=== PATIENT | female | born 1970 | race Two or more races ===

== ENCOUNTER 2018-04-15 17:01 | Emergency (ER) | payer OTHER ==
[~2018-04-15] VITALS: Ht 165.1 cm; Wt 79.4 kg
[~2018-04-15 17:01] MED LIST: UNABLE MC
[2018-04-15 19:03] VITALS: BP 142/95
[2018-04-15] MEDS ORDERED: IPRATRPIUM/ALBUTEROL 0.5/2.5MG 3 ML NEBU. NEB ONE (19:15)
[2018-04-15] MEDS ORDERED: BENZONATATE 100 MG CAPSULE. PO ONE (19:15)
[2018-04-15 19:49] LABS: INFLUENZA A PATIENT NEGATIVE (NEGATIVE); INFLUENZA B PATIENT NEGATIVE (NEGATIVE)
[2018-04-15] MEDS ORDERED: HYDR5SUS PO (21:18)
[2018-04-15] MEDS ORDERED: VENTOLIN HFA18 GM INH (21:18)
[2018-04-15] MEDS ORDERED: PRED50TA PO (21:18)
--- NOTE | 2018-04-15 21:19 | PHYS DOC ---
Past Medical History Past Medical History: No Pertinent History, Hypertension Past Surgical History: No Surgical History Alcohol Use: Occasionally Drug Use: None Adult General Chief Complaint Chief Complaint: Congestion HPI HPI Patient is a 48 year old female with a history of hypertension who presents to the ED today complaining of cough for 1 week. Patient denies any fever. Denies any chest pain or shortness of breath. Review of Systems Review of Systems Constitutional: Denies fever or chills [] Eyes: Denies change in visual acuity, redness, or eye pain [] HENT: Denies nasal congestion or sore throat [] Respiratory: Reports cough, denies shortness of breath [] Cardiovascular: No additional information not addressed in HPI [] GI: Denies abdominal pain, nausea, vomiting, bloody stools or diarrhea [] : Denies dysuria or hematuria [] Musculoskeletal: Denies back pain or joint pain [] Integument: Denies rash or skin lesions [] Neurologic: Denies headache, focal weakness or sensory changes [] All other systems were reviewed and found to be within normal limits, except as documented in this note. Current Medications Current Medications Current Medications Medications (Trade) Dose Ordered Sig/Lenny Start Time Stop Time Status Last Admin Dose Admin Albuterol/ Ipratropium (Duoneb) 3 ml 1X ONCE 04/15/18 19:15 04/15/18 19:16 DC 04/15/18 19:43 3 ML Benzonatate (Tessalon Perle) 100 mg 1X ONCE 04/15/18 19:15 04/15/18 19:16 DC 04/15/18 19:27 100 MG Allergies Allergies Allergies Coded Allergies Type Severity Reaction Last Updated Verified No Known Drug Allergies 03/04/14 No Physical Exam Physical Exam Constitutional: Well developed, well nourished, no acute distress, non-toxic appearance. [] HENT: Normocephalic, atraumatic, bilateral external ears normal, oropharynx moist, no oral exudates, nose normal. [] Eyes: PERRLA, EOMI, conjunctiva normal, no discharge. [] Neck: Normal range of motion, no tenderness, supple, no stridor. [] Cardiovascular:Heart rate regular rhythm, no murmur [] Lungs & Thorax: Bilateral breath sounds clear to auscultation [] Abdomen: Bowel sounds normal, soft, no tenderness, no masses, no pulsatile masses. [] Skin: Warm, dry, no erythema, no rash. [] Back: No tenderness, no CVA tenderness. [] Extremities: No tenderness, no cyanosis, no clubbing, ROM intact, no edema. [] Neurologic: Alert and oriented X 3, normal motor function, normal sensory function, no focal deficits noted. [] Psychologic: Affect normal, judgement normal, mood normal. [] Current Patient Data Vital Signs Vital Signs Date Time Temp Pulse Resp B/P (MAP) Pulse Ox O2 Delivery O2 Flow Rate FiO2 04/15/18 19:44 Room Air 04/15/18 19:03 98.2 95 16 142/95 (111) 97 98.2 Lab Values Laboratory Tests Test 04/15/18 19:22 Influenza Type A Antigen Negative (NEGATIVE) Influenza Type B Antigen Negative (NEGATIVE) EKG EKG [] Radiology/Procedures Radiology/Procedures [] Course & Med Decision Making Course & Med Decision Making Pertinent Labs and Imaging studies reviewed. (See chart for details) This is a 48-year-old. Patient presented to the ED today with complaints of cough for 1 week. Negative influenza A or B, chest x-ray interpreted by Dr. Hogan is negative for any acute findings. Patient likely has bronchitis. Was discharged with albuterol inhaler, prednisone, and tussionex. F/u with PCP in one week. Dragon Disclaimer Dragon Disclaimer This electronic medical record was generated, in whole or in part, using a voice recognition dictation system. Departure Departure Impression: Primary Impression: Acute bronchitis Disposition: 01 HOME, SELF-CARE Condition: STABLE Referrals: JAZIEL LOZADA MD (PCP) follow up in 1-2 weeks Patient Instructions: Acute Bronchitis Additional Instructions: You were evaluated for acute bronchitis in the emergency room. Take the prescribed medications as ordered. Follow-up with your doctor in 1-2 weeks. Scripts Albuterol Sulfate (VENTOLIN HFA INHALER) 18 Gm Hfa.aer.ad 2 PUFF INH Q4HRS for FOR ASTHMA, #1 INHALER 0 Refills Prov: MUTUNGAFLORY TOBACCO CURER 04/15/18 Prednisone (PREDNISONE) 50 Mg Tablet 1 TAB PO DAILY, #5 TAB Prov: TAISHAUNGAFLORY TOBACCO CURER 04/15/18 Hydrocodone/Chlorphen Polis (HYDROCODONE-CHLORPHENIRAM SUSP) 5 Ml Kayla.er.12h 5 ML PO PRN Q12HR PRN for COUGH, #80 ML 0 Refills Prov: FLORY CONN TOBACCO CURER 04/15/18 Problem Qualifiers Primary Impression: Acute bronchitis Bronchitis organism: unspecified organism Qualified Codes: J20.9 - Acute bronchitis, unspecified FLORY CONN TOBACCO CURER Apr 15, 2018 21:19
--- NOTE | 2018-04-15 22:29 | RAD ---
Examination: CHEST PA LATERAL History: ER PATIENT. NON PRODUCTIVE COUGH X10 DAYS. NO PRIORS. Comparison/Correlation: None Findings: PA and lateral views of chest were obtained. Heart size and pulmonary vasculature are normal. Subtle patchy infiltrate involving the left posterior basilar retrocardiac region is present. Right lung field is unremarkable. No pneumothorax. Bony structures are unremarkable. Impression: Patchy infiltrate at the posterior left basilar aspect. Follow-up to resolution recommended. Electronically signed by: Reuben Owens MD (04/15/2018 10:25 PM) [facility]
== END 2018-04-15 21:43 | disposition home or self-care (01) ==
LOC: ER 17:01
DX: J20.9 Acute bronchitis, unspecified (principal); I10 Essential (primary) hypertension
CPT/HCPCS: 71046; 87804; 94640; 99284; J7620

== ENCOUNTER 2018-08-26 15:15 | Emergency (ER) | payer OTHER ==
[~2018-08-26] VITALS: Ht 165.1 cm; Wt 79.4 kg
[~2018-08-26 15:15] MED LIST changes: +HYDR5SUS PO; +PRED50TA PO; +VENTOLIN HFA18 GM INH
[2018-08-26] MEDS ORDERED: IV NORMAL SALINE 1000ML BAG 1,000 ML IV ONE (15:30)
[2018-08-26] MEDS ORDERED: PROCHLORPERAZINE 10 MG/2 ML VIAL. IV ONE (15:30)
[2018-08-26] MEDS ORDERED: methylPREDNISolone SOD SUCC PF 125 MG/2 ML VIAL. IV ONE (15:30)
--- NOTE | 2018-08-26 15:33 | PHYS DOC ---
Past Medical History Past Medical History: No Pertinent History, Hypertension Past Surgical History: No Surgical History Alcohol Use: Occasionally Drug Use: None Adult General Chief Complaint Chief Complaint: HEADACHE HPI HPI Patient is a 48 year old female with history of hypertension who presents to the ED today complaining of 10 out of 10 throbbing headache behind the left eye that has been going on intermittently for 3 days. Patient denies any nausea or vomiting, denies any photosensitivity. Denies any exacerbating or relieving factors to this headache. She states she's also had a running nose for 3 days and has been using [id number]-[id number] nasal relief spray. Denies any fever. Denies any coughing. Denies any neck pain. She states she's had similar headaches but not as bad. Review of Systems Review of Systems Constitutional: Denies fever or chills [] Eyes: Denies change in visual acuity, redness, or eye pain [] HENT: Reports nasal congestion, denies sore throat [] Respiratory: Denies cough or shortness of breath [] Cardiovascular: No additional information not addressed in HPI [] GI: Denies abdominal pain, nausea, vomiting, bloody stools or diarrhea [] : Denies dysuria or hematuria [] Musculoskeletal: Denies back pain or joint pain [] Integument: Denies rash or skin lesions [] Neurologic: Reports left sided headache, denies focal weakness or sensory changes [] All other systems were reviewed and found to be within normal limits, except as documented in this note. Current Medications Current Medications Current Medications Medications (Trade) Dose Ordered Sig/Lenny Start Time Stop Time Status Last Admin Dose Admin Methylprednisolone Sodium Succinate (SOLU-Medrol 125MG VIAL) 125 mg 1X ONCE 08/26/18 15:30 08/26/18 15:31 DC 08/26/18 16:26 125 MG Prochlorperazine Edisylate (Compazine) 10 mg 1X ONCE 08/26/18 15:30 08/26/18 15:31 DC 08/26/18 16:26 10 MG Sodium Chloride 1,000 ml @ 1,000 mls/hr 1X ONCE 08/26/18 15:30 08/26/18 16:29 DC 08/26/18 16:26 1,000 MLS/HR Allergies Allergies Allergies Coded Allergies Type Severity Reaction Last Updated Verified No Known Drug Allergies 03/04/14 No Physical Exam Physical Exam Constitutional: Well developed, well nourished, no acute distress, non-toxic appearance. [] HENT: Normocephalic, atraumatic, bilateral external ears normal, oropharynx moist, no oral exudates, nose normal. [] Eyes: PERRLA, EOMI, conjunctiva normal, no discharge. [] Neck: Normal range of motion, no tenderness, supple, no stridor. [] Cardiovascular:Heart rate regular rhythm, no murmur [] Lungs & Thorax: Bilateral breath sounds clear to auscultation [] Abdomen: Bowel sounds normal, soft, no tenderness, no masses, no pulsatile masses. [] Skin: Warm, dry, no erythema, no rash. [] Back: No tenderness, no CVA tenderness. [] Extremities: No tenderness, no cyanosis, no clubbing, ROM intact, no edema. [] Neurologic: Alert and oriented X 3, normal motor function, normal sensory function, no focal deficits noted. Cranial nerves II through XII intact. Psychologic: Affect normal, judgement normal, mood normal. [] Current Patient Data Vital Signs Vital Signs Date Time Temp Pulse Resp B/P (MAP) Pulse Ox O2 Delivery O2 Flow Rate FiO2 08/26/18 15:42 98.2 92 16 142/85 (104) 99 Room Air 98.2 Lab Values Laboratory Tests Test 08/26/18 15:45 White Blood Count 8.1 x10^3/uL (4.0-11.0) Red Blood Count 4.34 x10^6/uL (3.50-5.40) Hemoglobin 13.2 g/dL (12.0-15.5) Hematocrit 38.4 % (36.0-47.0) Mean Corpuscular Volume 88 fL (79-100) Mean Corpuscular Hemoglobin 30 pg (25-35) Mean Corpuscular Hemoglobin Concent 34 g/dL (31-37) Red Cell Distribution Width 13.8 % (11.5-14.5) Platelet Count 248 x10^3/uL (140-400) Neutrophils (%) (Auto) 71 % (31-73) Lymphocytes (%) (Auto) 21 % (24-48) L Monocytes (%) (Auto) 6 % (0-9) Eosinophils (%) (Auto) 1 % (0-3) Basophils (%) (Auto) 1 % (0-3) Neutrophils # (Auto) 5.8 x10^3uL (1.8-7.7) Lymphocytes # (Auto) 1.7 x10^3/uL (1.0-4.8) Monocytes # (Auto) 0.5 x10^3/uL (0.0-1.1) Eosinophils # (Auto) 0.1 x10^3/uL (0.0-0.7) Basophils # (Auto) 0.0 x10^3/uL (0.0-0.2) Sodium Level 138 mmol/L (136-145) Potassium Level 3.4 mmol/L (3.5-5.1) L Chloride Level 100 mmol/L (98-107) Carbon Dioxide Level 25 mmol/L (21-32) Anion Gap 13 (6-14) Blood Urea Nitrogen 9 mg/dL (7-20) Creatinine 0.7 mg/dL (0.6-1.0) Estimated GFR (Cockcroft-Gault) 88.9 Glucose Level 122 mg/dL (70-99) H Calcium Level 9.0 mg/dL (8.5-10.1) Laboratory Tests 08/26/18 15:45 Laboratory Tests 08/26/18 15:45 EKG EKG [] Radiology/Procedures Radiology/Procedures []PROCEDURE: CT HEAD WO CONTRAST EXAM: CT HEAD WITHOUT CONTRAST. HISTORY: Headache, left eye pain. TECHNIQUE: Computed tomography of the head was performed without intravenous contrast. COMPARISON: None. FINDINGS: There is no intracranial hemorrhage. Murphy-white differentiation is preserved. The ventricles are normal in size and position. The left maxillary sinus is opacified in its visualized portions. There is a region of calcific density bridging the left maxillary sinus and nasal cavity. The left ethmoid air cells and the left aspect of the frontal sinus are also mostly opacified with fluid. The orbits are unremarkable. The temporal bones are unremarkable. The calvarium reveals no suspicious lesions. IMPRESSION: 1. No acute intracranial findings. 2. Diffuse acute left paranasal sinusitis. A region of calcification is seen within the left maxillary sinus and nasal cavity, partially visualized. An examination of the paranasal sinuses could further evaluate and exclude a mass as a cause for obstruction. *One or more of the following individualized dose reduction techniques were utilized for this examination: 1. Automated exposure control. 2. Adjustment of the mA and/or kV according to patient size. 3. Use of iterative reconstruction technique. Electronically signed by: Lisa Macedo MD (08/26/2018 4:06 PM) [facility] DICTATED and SIGNED BY: CURTIS MACEDO MD DATE: 08/26/18 1600 PROCEDURE: CT MAXILLOFACIAL WO CONTRAST CT MAXILLOFACIAL WO CONTRAST Indication: Sinus mass. Sinusitis. Exposure: One or more of the following individualized dose reduction techniques were utilized for this examination: 1. Automated exposure control 2. Adjustment of the mA and/or kV according to patient size 3. Use of iterative reconstruction technique. Technique: Standard imaging without intravenous contrast. Comparison is made with CT head of the same day. There is extensive soft tissue opacification involving most of the maxillary sinus and extending into the left nasal cavity. There is some central calcification. The medial wall of the left maxillary sinus is partially absent. There is moderate mucosal thickening extending into the left ethmoid sinuses. Near-complete opacification of left frontal sinus. Mild right frontal, right maxillary and right ethmoid mucosal thickening. Mild sphenoid sinus mucosal thickening. IMPRESSION: Diffuse mucosal thickening of paranasal sinuses, greater on the left. This is most advanced at the left maxillary sinus and left nasal cavity, which appear continuous, with absence or destruction of a portion of the medial maxillary sinus wall. Findings could be related to aggressive infectious or inflammatory sinusitis. Fungal sinusitis is possible. Neoplastic etiology is also possible and not excludable by this exam. And irregular calcifications within the nasal cavity may represent expanded turbinates versus dystrophic or neoplastic calcification/ossification. Electronically signed by: Hayden Gama MD (08/26/2018 4:55 PM) [id number] DICTATED and SIGNED BY: HAYDEN GAMA MD DATE: 08/26/18 1783 Course & Med Decision Making Course & Med Decision Making Pertinent Labs and Imaging studies reviewed. (See chart for details) This is a 48-year-old female patient presenting to the ED today with a headache with left nose drainage that began 3 days ago. CBC with normal WBC, BMP with no acute findings. CT of the head is negative, CT of the head was noted for possible muscle calcifi cation in the left nasal cavity. CT of the maxillary facial was obtained-please see extensive results noted on CT read. Consulted with Dr. Guerrero-we agreed patient should f/u with ENT. Patient was discharged with Augmentin. Dragon Disclaimer Dragon Disclaimer This electronic medical record was generated, in whole or in part, using a voice recognition dictation system. Departure Departure Impression: Primary Impression: Acute sinusitis Additional Impression: Headache Disposition: HOME, SELF-CARE Condition: STABLE Referrals: JAZIEL LOZADA MD (PCP) follow up in 2 weeks RANCHO DOOLEY MD follow up in 2 weeks Patient Instructions: Headache, FAQs, Sinusitis Additional Instructions: You were evaluated in the emergency room and noted to have infection in the left nose, your CT could not rule out mass or neoplasm to the left nose. Please follow up with the provided ENT in 2 weeks. Complete your antibiotics. Scripts Diclofenac Sodium (DICLOFENAC SODIUM) 50 Mg Tablet.dr 1 TAB PO BID, #20 TAB 0 Refills Prov: FLORY CONN APRN 08/26/18 Prednisone (PREDNISONE) 50 Mg Tablet 1 TAB PO DAILY, #5 TAB Prov: LFORY CONN APRN 08/26/18 Amoxicillin/Potassium Clav (AUGMENTIN 875-125 TABLET) 1 Each Tablet 1 TAB PO BID, #20 TAB Prov: FLORY CONN APRN 08/26/18 Problem Qualifiers Primary Impression: Acute sinusitis Sinusitis location: maxillary Recurrence: non-recurrent Qualified Codes: J01.00 - Acute maxillary sinusitis, unspecified Additional Impression: Headache Headache type: unspecified Headache chronicity pattern: acute headache Intractability: not intractable Qualified Codes: R51 - Headache FLORY CONN APRN Aug 26, 2018 15:33
[2018-08-26 15:55] LABS: BASO % 1 % (0-3); EOS # 0.1 x10^3/uL (0.0-0.7); EOS % 1 % (0-3); HEMATOCRIT 38.4 % (36.0-47.0); HEMOGLOBIN 13.2 g/dL (12.0-15.5); LYMPH # 1.7 x10^3/uL (1.0-4.8); LYMPH % 21 % (24-48); MEAN CORPUSCULAR HEMOGLOBIN 30 pg (25-35); MEAN CORPUSCULAR HGB CONC 34 g/dL (31-37); MEAN CORPUSCULAR VOLUME 88 fL (79-100); MONO # 0.5 x10^3/uL (0.0-1.1); MONO % 6 % (0-9); NEUT # 5.8 x10^3uL (1.8-7.7); NEUT % 71 % (31-73); PLATELET COUNT 248 x10^3/uL (140-400); RED BLOOD COUNT 4.34 x10^6/uL (3.50-5.40); RED CELL DISTRIBUTION WIDTH 13.8 % (11.5-14.5); WHITE BLOOD COUNT 8.1 x10^3/uL (4.0-11.0)
--- NOTE | 2018-08-26 16:09 | RAD ---
EXAM: CT HEAD WITHOUT CONTRAST. HISTORY: Headache, left eye pain. TECHNIQUE: Computed tomography of the head was performed without intravenous contrast. COMPARISON: None. FINDINGS: There is no intracranial hemorrhage. Murphy-white differentiation is preserved. The ventricles are normal in size and position. The left maxillary sinus is opacified in its visualized portions. There is a region of calcific density bridging the left maxillary sinus and nasal cavity. The left ethmoid air cells and the left aspect of the frontal sinus are also mostly opacified with fluid. The orbits are unremarkable. The temporal bones are unremarkable. The calvarium reveals no suspicious lesions. IMPRESSION: 1. No acute intracranial findings. 2. Diffuse acute left paranasal sinusitis. A region of calcification is seen within the left maxillary sinus and nasal cavity, partially visualized. An examination of the paranasal sinuses could further evaluate and exclude a mass as a cause for obstruction. *One or more of the following individualized dose reduction techniques were utilized for this examination: 1. Automated exposure control. 2. Adjustment of the mA and/or kV according to patient size. 3. Use of iterative reconstruction technique. Electronically signed by: Lisa Macedo MD (08/26/2018 4:06 PM) [facility]
[2018-08-26 16:24] LABS: CREATININE 0.7 mg/dL (0.6-1.0); GFR 88.9; POTASSIUM 3.4 mmol/L (3.5-5.1)
--- NOTE | 2018-08-26 16:58 | RAD ---
CT MAXILLOFACIAL WO CONTRAST Indication: Sinus mass. Sinusitis. Exposure: One or more of the following individualized dose reduction techniques were utilized for this examination: 1. Automated exposure control 2. Adjustment of the mA and/or kV according to patient size 3. Use of iterative reconstruction technique. Technique: Standard imaging without intravenous contrast. Comparison is made with CT head of the same day. There is extensive soft tissue opacification involving most of the maxillary sinus and extending into the left nasal cavity. There is some central calcification. The medial wall of the left maxillary sinus is partially absent. There is moderate mucosal thickening extending into the left ethmoid sinuses. Near-complete opacification of left frontal sinus. Mild right frontal, right maxillary and right ethmoid mucosal thickening. Mild sphenoid sinus mucosal thickening. IMPRESSION: Diffuse mucosal thickening of paranasal sinuses, greater on the left. This is most advanced at the left maxillary sinus and left nasal cavity, which appear continuous, with absence or destruction of a portion of the medial maxillary sinus wall. Findings could be related to aggressive infectious or inflammatory sinusitis. Fungal sinusitis is possible. Neoplastic etiology is also possible and not excludable by this exam. And irregular calcifications within the nasal cavity may represent expanded turbinates versus dystrophic or neoplastic calcification/ossification. Electronically signed by: Hayden Gama MD (08/26/2018 4:55 PM) [id number]
[2018-08-26] MEDS ORDERED: PRED50TA PO (17:48)
[2018-08-26] MEDS ORDERED: AMOX1TAB61 PO (17:48)
[2018-08-26] MEDS ORDERED: DICL50TA4 PO (17:48)
[2018-08-26 18:30] VITALS: BP 132/73
== END 2018-08-26 18:39 | disposition home or self-care (01) ==
LOC: ER 15:15
DX: J01.00 Acute maxillary sinusitis, unspecified (principal); R51 Headache; I10 Essential (primary) hypertension
CPT/HCPCS: 36415; 70450; 70486; 80048; 85025; 96374; 96375; 99285; J0780; J2930; J7030; 96361

== ENCOUNTER → 2020-05-24 | Outpatient (CLI) | payer OTHER ==
[~2020-05-24] MED LIST changes: +AMOX1TAB61 PO; +DICL50TA4 PO
--- NOTE | 2020-05-24 18:59 | RAD ---
Examination: 1. Bilateral digital diagnostic mammogram. 2. Limited left breast ultrasound. INDICATION: 50-year-old woman with a nontender skin lesion in the upper inner left breast referred fo r imaging evaluation. TECHNIQUE: CC and MLO views of both breasts were obtained with 2-D and 3-D technique and reviewed wit h computer-aided detection. Thereafter, targeted ultrasound of the left breast in the area of clinica l concern was performed FINDINGS: The breasts are heterogeneously dense. No dominant mass, suspicious calcification or architectural di stortion is present. A skin lesion marked with a marker at the skin surface in the medial left breast corresponds with the area of clinical concern as reported by the patient. Targeted ultrasound of this area reveals no associated breast abnormality. Mild focal thickening to t he skin is present, corresponding with the finding of clinical concern. There is no involvement of th e underlying breast tissue. Sonographic survey of the left axilla reveals no adenopathy. Images of th is lesion were acquired and reported at the 11:00 position 6 cm from the nipple. IMPRESSION: Mammographically and sonographically benign finding in the upper inner left breast compatible with a skin lesion. This should be managed clinically including biopsy if there are any clinically suspicious findings. I n the absence of a clinically suspicious finding, routine annual screening next due in one year is re commended. Findings discussed with the patient via her son who accompanied her and by her request provided inter pretive services. BI-RADS Category 2 Benign findings Patient entered into a reminder system with targeted due date for next mammogram. Electronically signed by: Darline Duarte MD (05/24/2020 6:56 PM) [id number]
== END ==
LOC: MAMMO 13:17
PROVIDERS: ATTEND Family Medicine
DX: N64.59 Other signs and symptoms in breast (principal); N64.9 Disorder of breast, unspecified
CPT/HCPCS: 76641; 77066